=== PATIENT | male | born 1995 | race Caucasian/White ===

== ENCOUNTER 2017-09-22 02:52 | Emergency (ER) | payer OTHER, MEDICAID ==
[2017-09-22] MEDS: KETOROLAC 60 MG INJ IM (05:03)
[2017-09-22] MEDS: DIAZEPAM 5 MG TAB PO (05:03)
[2017-09-22] MEDS: HYDROCODONE/APAP (10/325) TAB PO (05:03)
== END 2017-09-22 05:50 | disposition home or self-care (01) ==
LOC: FTE 02:52
DX: S16.1XXA Strain of muscle, fascia and tendon at neck level, initial encounter (principal); X58.XXXA Exposure to other specified factors, initial encounter; Y92.9 Unspecified place or not applicable; Z87.891 Personal history of nicotine dependence
CPT/HCPCS: 96372; 99284-25